=== PATIENT | male | born 1965 | race Caucasian/White ===

== ENCOUNTER 2016-07-02 18:54 | Emergency (ER) | payer OTHER ==
[~2016-07-02] VITALS: Ht 172.7 cm; Wt 78.0 kg
[~2016-07-02 18:54] MED LIST: CIPRO 500MG TA500 MG PO; DICLOFENAC SOD PO; KEFLEX 500MG.500 MG PO; MECLIZINE25 MG PO; PERCOCET 325 MG1 TA3 PO
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
[2016-07-02] MEDS ORDERED: SILVADENE CREAM50 GM TP (19:56)
[2016-07-02] MEDS ORDERED: ZOFRAN ODT4 MG PO (19:56)
[2016-07-02] MEDS ORDERED: LORTAB 5/3251 TAB PO (19:56)
[2016-07-02 20:30] VITALS: BP 136/76
--- OUTSIDE RECORDS SUMMARY | 2016-07-09 05:00 | External Medical Summary Rpt ---
Author Author , Organization [employer] Address Unknown Phone Unavailable Purpose Continuity of Care Document - through 2016
--- OUTSIDE RECORDS SUMMARY | 2016-07-09 05:00 | External Medical Summary Rpt ---
Demographics Preferred Language Hungarian Marital Status Unknown Caodaism Affiliation Unknown Race Unknown Ethnic Group Unknown Author Author , Organization [employer] Address Unknown Phone Unavailable Purpose Continuity of Care Document - 04-13-1996 through 2016 Immunization Name Date Route CVX Reacti Commen Provid Is Given on t er Refuse d Td Histor H149 No (adult 1996 ical ), Inform adsorb ation ed - Source Unspec ified
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
--- OUTSIDE RECORDS SUMMARY | 2016-07-09 05:00 | External Medical Summary Rpt ---
Author Author THOMAS Bedoya, THOMAS Bedoya Organization [employer] Address Unknown Phone Unavailable
--- OUTSIDE RECORDS SUMMARY | 2016-07-09 05:00 | External Medical Summary Rpt ---
Demographics Preferred Language Greenlandic Marital Status Unknown Quaker Affiliation Unknown Race Unknown Ethnic Group Unknown Author Author , Organization [employer] Address Unknown Phone Unavailable Purpose Continuity of Care Document - 04-13-1996 through 2016 Immunization Name Date Route CVX Reacti Commen Provid Is Given on t er Refuse d Td Histor H149 No (adult 1996 ical ), Inform adsorb ation ed - Source Unspec ified
== END 2016-07-02 20:50 | disposition home or self-care (01) ==
LOC: ER 18:54
DX: T22.10XA Burn of first degree of shoulder and upper limb, except wrist and hand, unspecified site, initial encounter (principal); T24.131A Burn of first degree of right lower leg, initial encounter; T24.231A Burn of second degree of right lower leg, initial encounter; Z23 Encounter for immunization; X03.8XXA Other exposure to controlled fire, not in building or structure, initial encounter; Y92.89 Other specified places as the place of occurrence of the external cause